=== PATIENT | female | born 1980 | race Caucasian/White ===

== ENCOUNTER 2017-12-13 20:00 | Emergency (ER) | payer MEDICAID ==
[~2017-12-13] VITALS: Ht 167.6 cm; Wt 86.4 kg
[2017-12-13 20:03] VITALS: BP 141/94; Ht 167.6 cm; Wt 86.4 kg
== END 2017-12-13 21:11 | disposition left against medical advice (07) ==
LOC: D.ER 20:00
DX: R07.9 Chest pain, unspecified (principal); R53.1 Weakness; F17.200 Nicotine dependence, unspecified, uncomplicated

== ENCOUNTER 2020-05-21 22:46 | Emergency (ER) | payer MEDICAID ==
[~2020-05-21] VITALS: Ht 167.6 cm; Wt 100.0 kg
[2020-05-21 23:05] VITALS: Ht 167.6 cm; Wt 100.0 kg
[2020-05-21 23:26] LABS: HEMATOCRIT 41.9 % (36.0-48.0); HEMOGLOBIN 14.4 g/dL (12-16); LYMPHOCYTES 49.2 % (15-50); MCH 32.7 pg (26.0-34.0); MCHC 34.4 g/dL (31.0-37.0); NEUTROPHILS 39.7 % (40-80); RBC 4.41 10x6/uL (4.00-5.40); RDW 12.3 % (11.5-14.5); WBC 4.6 10x3/uL (4.8-10.8)
[2020-05-21 23:27] LABS: PLATELET COUNT 288 10x3/uL (130-400)
[2020-05-21 23:35] LABS: CALC OSMOLALITY 274 mosm/kg (275-300); CALCIUM 8.5 mg/dL (8.5-10.1); CHLORIDE - SERUM 102 mmol/L (98-107); CREATININE - SERUM 0.9 mg/dL (0.6-1.3); GLUCOSE 97 mg/dL (74-106); POTASSIUM - SERUM 3.7 mmol/L (3.5-5.1); SODIUM 138 mmol/L (136-145); UREA NITROGEN 9 mg/dL (7-18); eGFR NON AFRICAN AMERICAN 73 mL/min (90-120)
[2020-05-21 23:53] LABS: ALBUMIN 3.8 g/dL (3.4-5.0); ALKALINE PHOSPHATASE 67 U/L (30-120); ALT (SGPT) 39 U/L (10-68); BILIRUBIN - TOTAL 0.35 mg/dL (0.2-1.3); C-REACTIVE PROTEIN 0.2 mg/dL (0.0-0.9); PRO BNP 249 pg/mL (0-125); PROTEIN - SERUM 7.9 g/dL (6.4-8.2); TROPONIN-I < 0.017 ng/mL (0.000-0.060)
[2020-05-22 00:37] VITALS: BP 155/93
== END 2020-05-22 00:40 | disposition home or self-care (01) ==
LOC: D.ER 22:46
PROVIDERS: Family Medicine
DX: R07.9 Chest pain, unspecified (principal)